=== PATIENT | female | born 1980 | race Caucasian/White ===

== ENCOUNTER → 2025-02-07 | Outpatient (CLI) | payer MEDICAID, SELFPAY ==
--- NOTE | 2025-02-07 07:30 | XR_ITS ---
Examination: Breast ultrasound, unilateral, right complete Date and time of exam: February 07, 2025 0825 hours INDICATIONS: Right breast sonogram June 14, 2024 12:00 nodule right breast 8 mm 12:00 nodule 7 mm 11:00 nodule with cystic areas 9 mm Technique: Real-time owens scale ultrasonographic imaging performed right breast including all 4 quadrants as well as nipple retroareolar and axillary region. Findings: 12:00 cyst 7 x 9 mm 8:00 cyst 11 x 11 mm 11:00 cyst 9 x 7 mm No solid nodules IMPRESSION: BI-RADS Category 2: Benign findings
--- NOTE | 2025-02-07 08:15 | XR_ITS ---
Examination: Diagnostic digital mammography, unilateral, right Computer aided detection 3-D breast Tomosynthesis, unilateral Date and time of exam: February 08, 2020 5079 hours INDICATIONS: Mammogram 06/14/2024 circumscribed nodules right breast Technique: Nonmagnified MLO, CC views of the right breast have been obtained, reconstructed from 3-D Tomosynthesis images. R2 computer aided detection program utilized for evaluation of suspicious masses and/or abnormal calcifications. 3-D Tomosynthesis images obtained. Findings: Scattered areas of fibroglandular density Focal asymmetry in the upper outer right breast appears slightly more prominent on this study compared to 06/14/2024 Impression: BI-RADS category 0: Incomplete: Need additional imaging evaluation Recommend repeat right breast sonography to compare with the 10/12/2023 exam
== END | disposition home or self-care (01) ==
PROVIDERS: Referring Provider Physician Assistant; Visit Provider Physician Assistant
DX: R92.8 Other abnormal and inconclusive findings on diagnostic imaging of breast (principal); N63.10 Unspecified lump in the right breast, unspecified quadrant
CPT/HCPCS: 76641; 77061; 77065; G0279